=== PATIENT | female | born 1970 | race Caucasian/White ===

== ENCOUNTER 2023-05-19 19:22 | Emergency (ER) | payer OTHER ==
[2023-05-19] MEDS ORDERED: predniSONE 20 MG TAB ONE (20:45)
== END 2023-05-19 21:00 | disposition home or self-care (01) ==
LOC: BURERS 19:22
DX: M10.9 Gout, unspecified (principal); M13.871 Other specified arthritis, right ankle and foot; I10 Essential (primary) hypertension; M32.9 Systemic lupus erythematosus, unspecified
CPT/HCPCS: 99283; J7512